=== PATIENT | male | born 1995 ===

== ENCOUNTER 2020-08-19 18:58 | Emergency (ER) | payer SELFPAY ==
[~2020-08-19] VITALS: Ht 172.7 cm; Wt 69.3 kg
[2020-08-19] MEDS ORDERED: PREDNISONE50 MG PO (20:20)
[2020-08-19 20:22] VITALS: BP 124/70
== END 2020-08-19 20:55 | disposition home or self-care (01) | DRG 916 ==
LOC: ED 18:58
DX: T78.40XA Allergy, unspecified, initial encounter (principal); X58.XXXA Exposure to other specified factors, initial encounter